=== PATIENT | female | born 1995 | race Caucasian/White ===

== ENCOUNTER → 2019-10-19 | Outpatient (CLI) | payer OTHER ==
--- NOTE | 2019-10-19 14:41 | US ---
EXAMINATION TYPE: Ultrasound OB <= 14 week fetus DATE OF EXAM: 10/19/2019 10:49 AM COMPARISON: NONE CLINICAL HISTORY: 23-year-old female No heart tones at the office. EXAM PERFORMED: Transabdominal (TA) FINDINGS: EXAM MEASUREMENTS: GESTATIONAL AGE / DATING Physician Established: (11 weeks/0 days) EDC: 05/09/2020 Dates by LMP: (11 weeks/0 days) EDC: 05/09/2020 Dates by Current Scan for: (10 weeks/1 days +/- 6 days) EDC: 05/15/2020 MATERNAL ANATOMY Uterus: 9.4 x 6.2 x 7.6 cm Right Ovary: 3.6 x 1.9 x 2.5 cm Left Ovary: 3.4 x 1.9 x 1.8 cm Post CDS / Adnexa: wnl Presence of free fluid: No Presence of corpus luteal cyst: Yes, right ovary measuring 1.8 x 1.4 x 1.5 cm Presence of subchorionic bleed: No GESTATION / SURVEY CRL: 3.2 cm (10 weeks/1 days) Yolk Sac (normal less than 6mm): 4 mm Heart Rate: 170 bpm Rhythm: Normal IUP: Viable IUP Date of LMP: 08/03/2019 Viable IUP with an JACKIE of 05/15/2020 by this exam IMPRESSION: 1. Single live intrauterine with estimated gestational age of 11 weeks 0 days [facility] L[facility]. [facility] is smaller and just barely concordant at 10 weeks 1 day. 2. Right ovarian corpus luteum measuring 1.8 cm. 3. heart rate upper limits of normal at 170 BPM. Short interval follow-up can be considered. 4. Otherwise, complete survey recommended at 18-20 weeks.
== END | disposition home or self-care (01) ==
LOC: RADUSWWP 10:20
PROVIDERS: ATTEND Obstetrics & Gynecology Obstetrics
DX: O76 Abnormality in fetal heart rate and rhythm complicating labor and delivery (principal); Z3A.11 11 weeks gestation of pregnancy
CPT/HCPCS: 76801

== ENCOUNTER → 2020-02-10 | Outpatient (CLI) | payer OTHER | END | disposition home or self-care (01) | LOC: LABWHC1 16:02 | PROVIDERS: ATTEND Nurse Practitioner Family | DX: R09.81 Nasal congestion (principal); R68.83 Chills (without fever) | CPT/HCPCS: U0003; C9803 ==

== ENCOUNTER 2020-03-23 16:07 | Outpatient (CLI) | payer OTHER ==
[2020-03-23] MEDS ORDERED: BETAMET ACET-BETAMETH SOD PHOS 6 MG/ML MDV IM SCH (16:15)
== END 2020-03-23 16:40 | disposition home or self-care (01) ==
LOC: FBPOP 16:07
PROVIDERS: ATTEND Obstetrics & Gynecology Obstetrics
DX: O36.5990 Maternal care for other known or suspected poor fetal growth, unspecified trimester, not applicable or unspecified (principal); Z3A.00 Weeks of gestation of pregnancy not specified
CPT/HCPCS: 96372; J0702

== ENCOUNTER 2020-03-24 16:38 | Outpatient (CLI) | payer OTHER ==
[2020-03-24] MEDS ORDERED: BETAMET ACET-BETAMETH SOD PHOS 6 MG/ML MDV IM SCH (17:00)
== END 2020-03-24 17:20 | disposition home or self-care (01) ==
LOC: FBPOP 16:38
PROVIDERS: ATTEND Obstetrics & Gynecology Obstetrics
DX: O36.5990 Maternal care for other known or suspected poor fetal growth, unspecified trimester, not applicable or unspecified (principal); Z3A.00 Weeks of gestation of pregnancy not specified
CPT/HCPCS: 59025; 99214; 96372; J0702

== ENCOUNTER 2020-04-05 13:13 | Outpatient (CLI) | payer OTHER ==
[2020-04-05] MEDS ORDERED: LACTATED RINGERS 1,000 ML IV SCH (13:45)
--- NOTE | 2020-04-05 13:55 | P.HPOB ---
History of Present Illness H&P Date: 04/05/20 Chief Complaint: IUP 33 5/7 weeks, severe IUGR This is a 24-year-old at 33-5/7 weeks that presents from the office. Patient has been followed for severe IUGR, ultrasound done on 03/23 revealing an estimated weight of 2 lbs. 8 oz <1%ile. Patient had normal amniotic fluid index at that time. She has been followed with biophysical profiles S/D ratios and nonstress test since this diagnosis. On the diagnosis state of March 23 patient admitted to the vaping 3-4 times an hour. Patient states she was a cigarette smoker 1 pack per day prior to this and felt better vaping 3-4 times an hour. Patient was urged to quit all tobacco smokeless and cigarette at that time. Patient has been struggling but trying. Patient does note good movement today on labor and delivery. Patient did receive betamethasone on March 23 an additional dose on March 24. On bloodwork patient has a blood type of A+, rubella immune, RPR nonreactive, B surface antigen negative, HIV negative. Patient was also diagnosed with gestational diabetes during this . Patient has done well with diet control and her blood sugars have been well controlled throughout. Review of Systems Constitutional: Denies chills, Denies fatigue, Denies fever Ears, nose, mouth and throat: Denies headache Cardiovascular: Reports leg edema Respiratory: Denies dyspnea Gastrointestinal: Denies constipation, Denies diarrhea, Denies nausea, Denies vomiting Genitourinary: Reports Past Medical History History of Any Multi-Drug Resistant Organisms: None Reported Smoking Status: Vaper Medications and Allergies Home Medications Medication Instructions Recorded Confirmed Type Famotidine [Pepcid] 20 mg PO Q48H 03/23/20 04/05/20 History Pnv No.95/Ferrous Fum/Folic AC 1 each PO DAILY 03/24/20 04/05/20 History [ Multivitamin Tablet] Allergies Allergy/AdvReac Type Severity Reaction Status Date / Time lactose Allergy Nausea Verified 04/05/20 13:31 latex Allergy Rash/Hives Verified 04/05/20 13:31 Exam Osteopathic Statement: *. No significant issues noted on an osteopathic structural exam other than those noted in the History and Physical/Consult. 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 Cervical exam is deferred. Assessment and Plan (1) 33 weeks gestation of Current Visit: Yes Status: Acute Code(s): Z3A.33 - 33 WEEKS GESTATION OF SNOMED Code(s): 00412448 (2) IUGR (intrauterine growth restriction) Narrative/Plan: Severe IUGR, less than the 1st percentile with reverse flow noted on the umbilical artery dopplers. Status post betamethasone on March 23 and . Current Visit: Yes Status: Acute Code(s): OWL5967 - SNOMED Code(s): 50472045 (3) GDM, class A1 Narrative/Plan: Well-controlled throughout the since diagnosis Current Visit: Yes Status: Acute Code(s): O24.410 - GESTATIONAL DIABETES MELLITUS IN , DIET CONTROLLED SNOMED Code(s): 92053813 (4) Oligohydramnios Narrative/Plan: CARMEN noted to be 5.8 today in the office. Current Visit: Yes Status: Acute Code(s): O41.00X0 - OLIGOHYDRAMNIOS, UNSP TRIMESTER, NOT APPLICABLE OR UNSP SNOMED Code(s): 41226147 Plan: This 24-year-old at 33-5/7 weeks presents with reverse end-diastolic flow after SD ratio was completed in the office. Patient has been followed for a diagnosis of severe IUGR since March 23. Patient has had reassuring testing up to this point. Estimated weight on March 23 was 2 lbs. 8 oz., normal amniotic fluid index was appreciated on that date. Patient states currently had a low CARMEN today at 5.8 and once again her cord Dopplers showed reverse flow. Patient is counseled on need for transfer to tertiary care center secondary to worsening severe IUGR. She did receive steroids on March 23 and of note. [facility] is called and they are considering transfer.
== END 2020-04-05 14:59 | disposition other institution (70) ==
LOC: FBPOP 13:13
PROVIDERS: ATTEND Obstetrics & Gynecology Obstetrics
DX: O24.410 Gestational diabetes mellitus in pregnancy, diet controlled (principal); O41.03X0 Oligohydramnios, third trimester, not applicable or unspecified; Z3A.33 33 weeks gestation of pregnancy
CPT/HCPCS: 59025; 96360; 96361

== ENCOUNTER → 2020-09-09 | Outpatient (CLI) | payer OTHER ==
[2020-09-09 10:38] LABS: Basophils % (A) 0 %; Eosinophils # (A) 0.2 k/uL (0-0.7); Eosinophils % (A) 2 %; HCT 40.9 % (34.0-46.0); HGB 13.8 gm/dL (11.4-16.0); Lymphocytes # (A) 2.3 k/uL (1.0-4.8); Lymphocytes % (A) 26 %; MCH 30.5 pg (25.0-35.0); MCHC 33.7 g/dL (31.0-37.0); MCV 90.6 fL (80.0-100.0); Mean Platelet Volume 7.6; Monocytes # (A) 0.4 k/uL (0-1.0); Monocytes % (A) 4 %; Neutrophils # (A) 5.7 k/uL (1.3-7.7); Neutrophils % (A) 66 %; Platelet Count 301 k/uL (150-450); RBC 4.52 m/uL (3.80-5.40); RDW 12.1 % (11.5-15.5); WBC 8.7 k/uL (3.8-10.6)
== END | disposition home or self-care (01) ==
LOC: LABPAT 09:54
PROVIDERS: ATTEND Obstetrics & Gynecology Obstetrics
DX: Z30.2 Encounter for sterilization (principal)
CPT/HCPCS: 36415; 85025

== ENCOUNTER 2020-09-19 10:33 | Day surgery (SDC) | payer OTHER ==
[2020-09-15 11:22] VITALS: BMI 27.3
[~2020-09-19 10:33] MED LIST: DEXAMETHASONE SOD PHOSPHATE 4 MG/ML 1 ML VIAL IV ONE; HYDROmorphone 0.5 MG/0.5 ML SYRINGE IVP PRN; LACTATED RINGERS 1,000 ML IV SCH; LIDOCAINE 1% (10MG/ML) FOR IV START INTRADERMA PRN; METOCLOPRAMIDE 5 MG/ML 2 ML VIAL IVP PRN; MIDAZOLAM 2 MG/2 ML VIAL IV PRN; ONDANSETRON 4 MG/2 ML VIAL IVP ONE; Pre Op ABX Message 1 EACH MISC MISCELLANE ONE; SCOPOLAMINE 1.5MG/72HR PATCH TRANSDERM ONE
[2020-09-19 11:03] VITALS: RESP 16
--- NOTE | 2020-09-19 11:26 | P.HPOB ---
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 Patient is done with childbearing and states she wishes permanent sterilization. Multiple discussions were had with this patient in the office regarding permanence of the procedure and her age. Patient is very adamant that she is done with childbearing. Patient does struggle with mood disorders and states this is what she desires. Patient has tried Nexplanon for a long-term contraceptive option and was unhappy with the bleeding pattern. Therefore patient desires permanent sterilization. Review of Systems Constitutional: Reports fatigue, Denies chills, Denies fever Ears, nose, mouth and throat: Denies headache Cardiovascular: Denies chest pain, Denies leg edema Respiratory: Denies dyspnea Gastrointestinal: Denies constipation, Denies diarrhea, Denies nausea, Denies v omiting Genitourinary: Denies Past Medical History Past Medical History: GERD/Reflux History of Any Multi-Drug Resistant Organisms: None Reported Additional Past Surgical History / Comment(s): COLONOSCOPY Past Anesthesia/Blood Transfusion Reactions: Family History of Problems w/ Anesthesia, Motion Sickness Additional Past Anesthesia/Blood Transfusion Reaction / Comment(s): MOTHER-PONV Smoking Status: Vaper - Past Family History Mother Family Medical History: No Reported History Medications and Allergies Home Medications Medication Instructions Recorded Confirmed Type Loratadine [Claritin] 10 mg PO DAILY 09/15/20 09/19/20 History Omeprazole 20 mg PO DAILY 09/15/20 09/19/20 History Sertraline HCl [Zoloft] 50 mg PO DAILY 09/15/20 09/19/20 History Allergies Allergy/AdvReac Type Severity Reaction Status Date / Time lactose Allergy Nausea Verified 09/19/20 11:05 latex Allergy Rash/Hives Verified 09/19/20 11:05 Exam Osteopathic Statement: *. No significant issues noted on an osteopathic structural exam other than those noted in the History and Physical/Consult. 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 Patient is counseled on permanence of the procedure along with failure rates. Patient states understanding. Patient is counseled on risks of surgery including but not limited to infection, bleeding, and damage to bladder, bowel or ureteric injury. Patient states understanding and wishes to proceed. Patient was taken back to the operating suite for planned laparoscopic tubal ligation with Filshie clips.
[2020-09-19] MEDS ORDERED: BUPIVACAINE (PF) 0.25% 30 ML VIAL SQ ONE ×2 (12:41→13:20)
[2020-09-19] MEDS ORDERED: fentaNYL (PF) 50 MCG/ML 2 ML AMP ONE (12:43)
[2020-09-19] MEDS ORDERED: LIDOCAINE URO-JET JELLY 2% 5 ML KIT URETHRAL ONE ×2 (12:43→13:13)
[2020-09-19] MEDS ORDERED: PROPOFOL 10 MG/ML 20 ML VIAL IV ONE (12:43)
[2020-09-19] MEDS ORDERED: GLYCOPYRROLATE 0.2 MG/ML 2 ML VIAL ONE (12:43)
[2020-09-19] MEDS ORDERED: LIDOCAINE 1% INJ 10MG/ML (20 ML MDV) ONE (12:43)
[2020-09-19] MEDS ORDERED: MIDAZOLAM 2 MG/2 ML VIAL ONE (12:43)
[2020-09-19] MEDS ORDERED: ROCURONIUM 10 MG/ML (5 ML VIAL) IV ONE (12:43)
[2020-09-19] MEDS ORDERED: NEOSTIGMINE 1 MG/ML 10 ML VIAL ONE (12:43)
[2020-09-19] MEDS ORDERED: KETAMINE 10 MG/ML 20 ML VIAL ONE (12:43)
[2020-09-19] MEDS ORDERED: SUCCINYLCHOLINE CHLORIDE 100 MG/5 ML SYR IV ONE (12:43)
[2020-09-19] MEDS ORDERED: KETOROLAC 15 MG/ML 1 ML VIAL ONE (12:43)
[2020-09-19] MEDS ORDERED: LACTATED RINGERS 1,000 ML IV ONE (13:19)
--- NOTE | 2020-09-19 13:35 | P.OP ---
Date of Procedure: 09/19/20 Preoperative Diagnosis: Undesired fertility, family status complete Postoperative Diagnosis: Same Procedure(s) Performed: Laparoscopic tubal ligation with Filshie clips Anesthesia: GETA Surgeon: Cristela Alexander Estimated Blood Loss (ml): 5 IV fluids (ml): 500 Urine output (ml): 150 Pathology: none sent Condition: stable Disposition: PACU Indications for Procedure: Patient request permanent sterilization Operative Findings: Normal uterus tubes and ovaries were appreciated Description of Procedure: Patient was taken back to the operating suite where general anesthesia was ob tained without difficulty by the anesthesia department. She was prepped and draped in the normal sterile fashion in the dorsal lithotomy position. A latex free catheter was used to drain the bladder of clear yellow urine. A speculum was placed the cervix is visualized the anterior lip of the cervix is visualized and grasped with a single-tooth tenaculum, and acorn uterine made pillar was advanced into the cervix as a means to manipulate the uterus throughout the procedure. Attention turned to the patient's abdomen where in the umbilical fold a small skin incision is made. Through this incision the Veress needle is placed. Once the Veress needle was deemed to be in the appropriate position with a drop of CO2 pressure with insufflation of CO2 gas, CO2 insufflation was allowed to occur. Approximately 2 L of gas were used to obtain pneumoperitoneum. At this time and 5 mm trocar and sleeve is placed through the skin incision and toward the pneumoperitoneum. The above-noted findings are visualized. An additional port site is placed in the right mid abdomen this is a 8mm trocar and is placed under direct visualization. The Filshie clip applicator was then used to apply a clip to the left fallopian tube, reloaded and clip applied to the right fallopian tube. Hemostasis was appreciated. Pictures were taken and all instruments removed from the patient's abdomen. Skin incisions were closed with 4-0 Vicryl in a subarticular fashion Steri- Strips and sterile dressings were applied. The single-tooth tenaculum was taken off of the anterior lip of the cervix hemostasis was appreciated, the acorn uterine manipulator was removed from the cervix. All counts were noted to be correct 2, patient tolerated procedure well and was taken the recovery room awake in stable condition.
[2020-09-19 13:41] VITALS: TEMP 97.1
[2020-09-19 14:17] VITALS: BP 112/77
[2020-09-19 14:46] VITALS: PULSE 71
== END 2020-09-19 14:59 | disposition home or self-care (01) ==
LOC: OR 10:33
PROVIDERS: ATTEND Obstetrics & Gynecology Obstetrics
DX: Z30.2 Encounter for sterilization (principal); K21.9 Gastro-esophageal reflux disease without esophagitis; Z91.040 Latex allergy status
CPT/HCPCS: 58671; 81025; J2250; J1100; J2710; J2405; J2001; J3010; J1885; J0330; J2704